=== PATIENT | male | born 1945 | race Caucasian/White ===

== ENCOUNTER 2017-02-03 20:09 | Emergency (ER) | payer MEDICARE ==
[~2017-02-03] VITALS: Ht 175.3 cm; Wt 94.2 kg
[~2017-02-03 20:09] MED LIST: ASPI-496 PO; ASPI-650 PO; ATOR20TA9 PO; DIGO250T6 PO; DILT180C9 PO; HYDR-3138 PO; LISI2.5T PO; NAPR375T5 PO; ONDA-39 PO; ROSU10TA PO; TAMS0.4C2 PO
[2017-02-03] MEDS ORDERED: ONDANSETRON 2MG/ML, 2ML IVPush ONE (20:30)
[2017-02-03] MEDS ORDERED: KETOROLAC 30 MG/1 ML IVPush ONE (20:30)
[2017-02-03] MEDS ORDERED: SODIUM CHLORIDE FLUSH 10ML SYR IVF ONE (20:30)
[2017-02-03] MEDS ORDERED: SODIUM CHLORIDE 0.9% 1,000ML IVBOLUS ONE (20:30)
[2017-02-03] MEDS ORDERED: ONDANSETRON 2MG/ML, 2ML ONE (20:39)
[2017-02-03] MEDS ORDERED: KETOROLAC 30 MG/1 ML ONE (20:39)
[2017-02-03 21:03] LABS: HEMOGLOBIN 15.9 g/dL (13.7-18.0)
[2017-02-03 21:13] LABS: ASPARTATE AMINO TRANSFERASE 29 U/L (15-37); BLOOD UREA NITROGEN 22 mg/dL (7-18)
[2017-02-03] MEDS ORDERED: MORPHINE SULFATE 4 MG/ML, 1ML ONE (21:23)
[2017-02-03] MEDS ORDERED: OXYcodone/APAP 5/325MG TABLET PO ONE (21:30)
[2017-02-03] MEDS ORDERED: MORPHINE SULFATE 4 MG/ML, 1ML IVPush PRN (21:30)
[2017-02-03 22:00] VITALS: BP 162/88
[2017-02-03 22:00] LABS: PATH.CAST-FLAG NOT PRESENT; SPERM-FLAG NOT PRESENT; SRC-FLAG NOT PRESENT; XTAL-FLAG NOT PRESENT; YLC-FLAG NOT PRESENT
== END 2017-02-03 22:46 | disposition home or self-care (01) ==
LOC: ED 22:40
DX: N20.1 Calculus of ureter (principal); N13.30 Unspecified hydronephrosis; M54.6 Pain in thoracic spine; R11.2 Nausea with vomiting, unspecified
CPT/HCPCS: 36415; 74176; 80053; 81001; 85025; 96361; 96374; 96375; 99285; J1885; J2405; J7030

== ENCOUNTER → 2017-02-04 | Outpatient (CLI) | payer MEDICARE | END | disposition home or self-care (01) | LOC: CFH 13:47 | PROVIDERS: ATTEND Urology | DX: N20.0 Calculus of kidney (principal); N28.1 Cyst of kidney, acquired | CPT/HCPCS: 74000 ==

== ENCOUNTER → 2017-02-21 | Outpatient (CLI) | payer MEDICARE | END | disposition home or self-care (01) | LOC: CFH 12:44 | PROVIDERS: ATTEND Urology | DX: N13.39 Other hydronephrosis (principal); N28.1 Cyst of kidney, acquired | CPT/HCPCS: 76770 ==

== ENCOUNTER → 2017-05-17 | Outpatient (CLI) | payer MEDICARE | END | disposition home or self-care (01) | LOC: CFH 15:26 | PROVIDERS: ATTEND Urology | DX: N13.2 Hydronephrosis with renal and ureteral calculous obstruction (principal); N40.0 Benign prostatic hyperplasia without lower urinary tract symptoms; N32.9 Bladder disorder, unspecified; N28.1 Cyst of kidney, acquired; K57.30 Diverticulosis of large intestine without perforation or abscess without bleeding; K44.9 Diaphragmatic hernia without obstruction or gangrene; K76.0 Fatty (change of) liver, not elsewhere classified; I71.4 Abdominal aortic aneurysm, without rupture; I25.10 Atherosclerotic heart disease of native coronary artery without angina pectoris; I70.0 Atherosclerosis of aorta; M41.86 Other forms of scoliosis, lumbar region | CPT/HCPCS: 74176 ==

== ENCOUNTER → 2018-06-16 | Outpatient (CLI) | payer MEDICARE ==
[~2018-06-16] MED LIST changes: -HYDR-3138 PO; +HYDR-3237 PO; -ONDA-39 PO; +ONDA4TAB12 PO
== END | disposition home or self-care (01) ==
LOC: CFH 13:25
PROVIDERS: ATTEND Urology
DX: N20.0 Calculus of kidney (principal); N40.0 Benign prostatic hyperplasia without lower urinary tract symptoms; N28.1 Cyst of kidney, acquired; E11.9 Type 2 diabetes mellitus without complications
CPT/HCPCS: 74176

== ENCOUNTER → 2018-08-18 | Outpatient (CLI) | payer MEDICARE | END | disposition home or self-care (01) | LOC: CVU 12:48 | PROVIDERS: ATTEND Internal Medicine Cardiovascular Disease | DX: I65.22 Occlusion and stenosis of left carotid artery (principal); R09.89 Other specified symptoms and signs involving the circulatory and respiratory systems; Z86.73 Personal history of transient ischemic attack (TIA), and cerebral infarction without residual deficits | CPT/HCPCS: 93880 ==

== ENCOUNTER → 2019-02-12 | Outpatient (CLI) | payer MEDICARE ==
[~2019-02-12] MED LIST changes: +ATOR20TA37 PO; -ATOR20TA9 PO; -ROSU10TA PO; +ROSU10TA2 PO
== END | disposition home or self-care (01) ==
LOC: CFH 11:04
PROVIDERS: ATTEND Internal Medicine Cardiovascular Disease
DX: I35.2 Nonrheumatic aortic (valve) stenosis with insufficiency (principal)
CPT/HCPCS: 93306

== ENCOUNTER → 2020-04-11 | Outpatient (CLI) | payer MEDICARE ==
[~2020-04-11] MED LIST changes: +DILT180C32 PO; -DILT180C9 PO; +ONDA-89 PO; -ONDA4TAB12 PO
== END | disposition home or self-care (01) ==
LOC: CFH 12:03
PROVIDERS: ATTEND Urology
DX: K44.9 Diaphragmatic hernia without obstruction or gangrene (principal); N20.0 Calculus of kidney; N28.1 Cyst of kidney, acquired; N21.0 Calculus in bladder; I71.4 Abdominal aortic aneurysm, without rupture; I72.3 Aneurysm of iliac artery; N40.0 Benign prostatic hyperplasia without lower urinary tract symptoms
CPT/HCPCS: 74176

== ENCOUNTER 2020-07-18 07:31 | Outpatient (CLI) | payer MEDICARE | END 2020-07-18 23:59 | disposition home or self-care (01) | LOC: CVU 07:31 | PROVIDERS: ATTEND Internal Medicine Cardiovascular Disease | DX: I08.2 Rheumatic disorders of both aortic and tricuspid valves (principal); I65.23 Occlusion and stenosis of bilateral carotid arteries; I67.9 Cerebrovascular disease, unspecified | CPT/HCPCS: 93306; 93880 ==

== ENCOUNTER → 2021-04-05 | Outpatient (CLI) | payer MEDICARE ==
[~2021-04-05] MED LIST changes: +ASPI-1026 PO; -ASPI-650 PO; +DILT-86 PO; -DILT180C32 PO; +OMNIPAQUE 350 MG/ML, 100ML BOTTLE ONE
== END | disposition home or self-care (01) ==
LOC: CFH 13:05
PROVIDERS: ATTEND Urology
DX: N28.1 Cyst of kidney, acquired (principal); I71.4 Abdominal aortic aneurysm, without rupture; N20.0 Calculus of kidney
CPT/HCPCS: 74178; Q9967